=== PATIENT | female | born 1960 | race Caucasian/White ===

== ENCOUNTER 2017-10-29 07:23 | Emergency (ER) | payer MEDICAID ==
[~2017-10-29] VITALS: Ht 157.5 cm; Wt 101.6 kg
[~2017-10-29 07:23] MED LIST: ALBU0.0912 IH; AMMO12LO TP; ASPI-1093 PO; BENA5TAB13 PO; BENZ1TAB42 PO; BUDE180P IH; DIVA500E2 PO; HAL1 PO; LOTC TP; METF500T PO; SIMV20TA1 PO; SYN.025 PO; TRAZ-289 PO
[2017-10-29 07:28] VITALS: BP 120/70
--- NOTE | 2017-10-29 07:36 | NUR ---
PT TO RM 12 WITH STEADY GAIT. GAVE REPORT TO GERARDO SCHMIDT.
[2017-10-29] MEDS ORDERED: KETOROLAC 60 MG/2 ML VIAL IM ONE (07:45)
[2017-10-29] MEDS ORDERED: cefTRIAXone 1,000 MG in LIDOCAINE 1% ***ER ONLY *** 2.1 ML IM ONE (07:45)
[2017-10-29] MEDS ORDERED: cefTRIAXone 1,000 MG VIAL ONE (07:52)
[2017-10-29] MEDS ORDERED: LIDOCAINE MPF 1% - **ER/OR** 5 ML ONE (07:53)
--- NOTE | 2017-10-29 08:11 | NUR ---
CAROLINE CAME IN TO THE ER WITH PAIN TO THE RIGHT EAR. SHE FELT LIKE A BUG WENT INTO HER EAR AND IT IS MAKING NOISES. PAIN LEVEL IS ABOUT A 5. ONSET OF PAIN STARTED THIS MORNING. CAROLINE HAS NO KNOWN ALLERGIES. HER MEDICAL HISTORY IS DIABETES AND MENTAL HEALTH SCHIZOPHRENIA. HER BRICKLAYER SEWER DROPPED HER OFF FROM HER PENITENTIARY. CAROLINE APPEARS TO BE CALM AND COOPERATIVE.
[2017-10-29 08:41] VITALS: BP 120/70
--- NOTE | 2017-10-29 08:42 | NUR ---
Patient discharged with v/s stable. Written and verbal after care instructions given and explained. Patient alert, oriented and verbalized understanding of instructions. Ambulatory with steady gait. All questions addressed prior to discharge. ID band removed. Patient advised to follow up with PMD. Rx of CORTISPORIN AND KETOROLAC given. Patient educated on indication of medication including possible reaction and side effects. Opportunity to ask questions provided and answered.Patients vitals were stable and she was alert and oriented X4 upon discharge.
== END 2017-10-29 08:42 | disposition home or self-care (01) ==
LOC: MED 07:23
DX: H60.91 Unspecified otitis externa, right ear (principal); E11.9 Type 2 diabetes mellitus without complications; K21.9 Gastro-esophageal reflux disease without esophagitis; I10 Essential (primary) hypertension; Z79.899 Other long term (current) drug therapy
CPT/HCPCS: 96372; 99284; J0696; J1885; J2001

== ENCOUNTER 2022-01-25 18:48 | Inpatient (IN) | payer MEDICAID ==
[~2022-01-25] VITALS: Ht 162.6 cm; Wt 72.6 kg
[~2022-01-25 18:48] MED LIST changes: +BENZ-315 PO; -BENZ1TAB42 PO; -HAL1 PO; +HALO1TAB99 PO; +METF-346 PO; -METF500T PO; +SIMV-372 PO; -SIMV20TA1 PO; -TRAZ-289 PO; +TRAZ-471 PO
[2022-01-25 18:55] VITALS: BP 84/60
--- NOTE | 2022-01-25 19:16 | NUR ---
PT BIBA BLS ER BED 9
--- NOTE | 2022-01-25 19:16 | NUR ---
Patient to bed 09.
--- NOTE | 2022-01-25 19:20 | NUR ---
Report given to BRAYAN Gomez.
--- NOTE | 2022-01-25 19:30 | NUR ---
ASSUME CARE OF PT IN ED 9, REPORT GIVEN BY JUANITA RN, PT BIBA FOR [facility]AC[facility], PT C/O GENERAL WEAKNESS, COUGH X 4 DAYS. HX- COPD, DM, BIOLAR, SCHIZOPHRENIA.
[2022-01-25 20:56] LABS: BASOPHILS % (AUTO) 0.5 % (0.0-2.0); EOSINOPHILS # (AUTO) 0.1 K/uL (0-0.4); EOSINOPHILS % (AUTO) 1.5 % (0.0-4.0); HEMATOCRIT 36.6 % (36-48); HEMOGLOBIN 12.3 g/dL (12.0-16.0); LYMPHOCYTES % (AUTO) 31.9 % (20.5-51.1); MEAN CORPUSCULAR HEMOGLOBIN 33 pg (27-31); MEAN CORPUSCULAR HGB CONC 34 g/dL (33-37); MEAN CORPUSCULAR VOLUME 96.7 fL (80-94); MONOCYTES # (AUTO) 0.8 K/uL (0.8-1.0); MONOCYTES % (AUTO) 13.1 % (1.7-9.3); NEUTROPHILS # (AUTO) 3.3 K/uL (1.8-7.7); PLATELET COUNT (AUTO) 127 K/uL (140-450); RED BLOOD CELL COUNT(AUTO) 3.78 MIL/uL (4.20-5.40); RED CELL DISTRIBUTION WIDTH 15.1 % (11.6-13.7); WHITE BLOOD COUNT (AUTO) 6.3 K/uL (4.8-10.8)
--- NOTE | 2022-01-25 21:00 | NUR ---
PT TOOK OUT IV AND SOILED HERSELF. PT BED LINEN CHANGED AND DIAPER APPLIED, PLACED ON HOSPITAL MORTICIAN.
[2022-01-25 21:22] LABS: ALBUMIN 2.7 g/dL (3.4-5.0); ANION GAP 14.2 (8-16); CARBON DIOXIDE 23.7 mmol/L (21-32); CREATININE 2.1 mg/dL (0.6-1.3); POTASSIUM 4.9 mmol/L (3.5-5.1); TOTAL BILIRUBIN 0.2 mg/dL (0.0-1.0)
[2022-01-25] MEDS ORDERED: cefTRIAXone 1,000 MG VIAL ONE (22:00)
[2022-01-25] MEDS: NACL 0.9% 1,000 ML IV SCH ×2 (22:02→23:06)
[2022-01-25] MEDS ORDERED: CALCIUM GLUC 1 GM/50 mL NS BAG 50 ML IV ONE (22:15)
[2022-01-25] MEDS ORDERED: ALBUMIN HUMAN 25% 50 ML IV ONE (22:20)
[2022-01-26] MEDS ORDERED: MAGNESIUM OXIDE 400 MG TAB PO PRN (00:35)
[2022-01-26] MEDS ORDERED: ALBUTEROL SULFATE/IPRATROPIU 3 ML SOL IH PRN (00:35)
[2022-01-26] MEDS ORDERED: MORPHINE SULFATE 2 MG/ML SYR IVP PRN (00:35)
[2022-01-26] MEDS ORDERED: HYDROcodone/APAP 5/325 MG 1 TAB TAB PO PRN (00:35)
[2022-01-26] MEDS ORDERED: ONDANSETRON 4 MG/2 ML VIAL IM/IVP PRN (00:35)
[2022-01-26] MEDS ORDERED: DOCUSATE SODIUM 100 MG GELCAP PO PRN (00:35)
[2022-01-26] MEDS ORDERED: SODIUM PHOS / POTASSIUM PHOS 1 PKT PDR PO PRN (00:35)
[2022-01-26] MEDS ORDERED: POTASSIUM CHLORIDE 10 MEQ TABER PO PRN (00:35)
[2022-01-26] MEDS ORDERED: ACETAMINOPHEN 325 MG TAB PO PRN (00:35)
--- NOTE | 2022-01-26 00:39 | NUR ---
Assisted patient to restroom.
[2022-01-26 01:22] LABS: MAGNESIUM 2.3 mg/dL (1.8-2.4); PHOSPHORUS 3.6 mg/dL (2.5-4.9)
[2022-01-26] MEDS ORDERED: ALBUMIN HUMAN 25% 50 ML IV ONE (01:51)
--- NOTE | 2022-01-26 02:14 | NUR ---
Spoke with patient 's sister and update patient status.
--- NOTE | 2022-01-26 02:45 | NUR ---
PT RESTING IN BED, CONTINUE ON JACQUARD LOOM CARPET WEAVER, NO DISTRESS OBSERVED.
[2022-01-26] MEDS: NACL 0.9% 1,000 ML IV SCH ×2 (02:46→17:22)
--- NOTE | 2022-01-26 03:29 | NUR ---
PT PULLED OUT ANOTHER IV, PT AMBULATED TO RESTROOM. PT LINEN CHANGED APPLIED CLEAN DIAPER.
[2022-01-26 03:32] LABS: APPEARANCE,URINE CLOUDY (CLEAR); BILIRUBIN,URINE NEGATIVE (NEGATIVE); BLOOD, URINE TRACE-I (NEGATIVE); COLOR,URINE YELLOW (YELLOW); LEUKOCYTE ESTERASE ,URINE 3+ (NEGATIVE); NITRITE, URINE NEGATIVE (NEGATIVE); UGLUCOSE NEGATIVE (NEGATIVE)
--- NOTE | 2022-01-26 04:00 | NUR ---
PT ASLEEP RESTING IN BED, PLACED PT BACK ON OUTSIDE PARTS SALESMAN.
--- NOTE | 2022-01-26 06:45 | NUR ---
PT GOWN CHANGED AND NEW IV STARTED. PT RESTING IN BED ON EKG/ECG TECHNICIAN.
--- NOTE | 2022-01-26 07:30 | NUR ---
RECEIVED PT IN [facility] ALERT ORIENTED FOLLOWS COMMANDS. NSR ON MONITOR. IV INFUSING FLUIDS PER ORDER. PENDING TELE BED. NAD. SAFETY MAINTAINED
--- NOTE | 2022-01-26 07:30 | NUR ---
RECEIVED PATIENT FROM ER NURSE BY JARED. PT ADMITTED FOR GENERALIZED WEAKNESS, HODAN, AND DEHYDRATION. PT IS AOX2, ABLE TO MAKE NEEDS KNOWN. ON ROOM AIR AND NO DISTRESS NOTED. SKIN IS WARM,DRY, AND INTACT. IV SITE ON LAC 18G SALINE LOCKED. ABD IS SOFT, FLAT, NON-TENDER. BOWEL SOUNDS ACTIVE IN ALL QUADRANTS. DENIES PAIN AT THE MOMENT. PLAN OF CARE DISCUSSED. SAFETY PRECAUTIONS IN PLACE. CALL LIGHT WITHIN REACH. WILL CONTINUE TO MONITOR. Addendum: 01/26/22 at 1419 by Jose Miguel Baker RN RN WRONG TIMESTAMP. CORRECT TIME IS 0810
[2022-01-26] MEDS ORDERED: NACL 0.9% 500 ML IV SCH (07:43)
[2022-01-26 08:10] VITALS: BP 136/65
--- NOTE | 2022-01-26 08:10 | NUR ---
RECEIVED PATIENT FROM ER NURSE BY JARED. PT ADMITTED FOR GENERALIZED WEAKNESS, HODAN, AND DEHYDRATION. PT IS AOX2, ABLE TO MAKE NEEDS KNOWN. ON ROOM AIR AND NO DISTRESS NOTED. SKIN IS WARM,DRY, AND INTACT. IV SITE ON LAC 18G SALINE LOCKED. ABD IS SOFT, FLAT, NON-TENDER. BOWEL SOUNDS ACTIVE IN ALL QUADRANTS. DENIES PAIN AT THE MOMENT. PLAN OF CARE DISCUSSED. SAFETY PRECAUTIONS IN PLACE. CALL LIGHT WITHIN REACH. WILL CONTINUE TO MONITOR.
[2022-01-26] MEDS ORDERED: LEVOTHYROXINE 0.025 MG TAB PO SCH (09:00)
[2022-01-26] MEDS: HALOPERIDOL 1 MG TAB PO SCH ×2 (09:53→21:54)
[2022-01-26] MEDS: PANTOPRAZOLE 40 MG TABEC PO SCH (09:54)
[2022-01-26] MEDS: DIVALPROEX 500 MG TABEC PO SCH ×2 (09:54→21:54)
[2022-01-26] MEDS: ECOTRIN 81 MG TABEC PO SCH (09:54)
[2022-01-26] MEDS: metFORMIN 500 MG TAB PO SCH ×2 (09:55→21:53)
[2022-01-26] MEDS: SIMVASTATIN 20 MG TAB PO SCH (09:55)
[2022-01-26] MEDS: BENAZEPRIL 5 MG TAB PO SCH (09:55)
--- NOTE | 2022-01-26 10:00 | NUR ---
ALL SCHEDULED MEDS GIVEN. PT IS STABLE. NO DISTRESS NOTED. WILL CONTINUE TO MONITOR.
[2022-01-26 10:20] LABS: BASOPHILS % (AUTO) 0.4 % (0.0-2.0); EOSINOPHILS # (AUTO) 0.1 K/uL (0-0.4); HEMATOCRIT 36.7 % (36-48); HEMOGLOBIN 12.2 g/dL (12.0-16.0); LYMPHOCYTES # (AUTO) 1.7 K/uL (2.5-16.5); LYMPHOCYTES % (AUTO) 34.6 % (20.5-51.1); MEAN CORPUSCULAR HEMOGLOBIN 32 pg (27-31); MEAN CORPUSCULAR HGB CONC 33 g/dL (33-37); MEAN CORPUSCULAR VOLUME 97.1 fL (80-94); MONOCYTES # (AUTO) 0.6 K/uL (0.8-1.0); MONOCYTES % (AUTO) 11.3 % (1.7-9.3); NEUTROPHILS # (AUTO) 2.6 K/uL (1.8-7.7); NEUTROPHILS % (AUTO) 51.7 % (42.2-75.2); PLATELET COUNT (AUTO) 128 K/uL (140-450); RED BLOOD CELL COUNT(AUTO) 3.78 MIL/uL (4.20-5.40); RED CELL DISTRIBUTION WIDTH 14.9 % (11.6-13.7)
[2022-01-26 10:43] LABS: ANION GAP 10.8 (8-16); CARBON DIOXIDE 25.9 mmol/L (21-32); POTASSIUM 4.7 mmol/L (3.5-5.1)
[2022-01-26 12:00] VITALS: BP 142/71
--- NOTE | 2022-01-26 13:15 | NUR ---
CHECKED ON PATIENT. PT IS SLEEPING NOTED CHEST RISE AND FALL. NO DISTRESS NOTED. WILL CONTINUE TO MONITOR.
--- NOTE | 2022-01-26 14:25 | NUR ---
PATIENT HAS BEEN SCREENED AND CATEGORIZED MODERATE NUTRITION RISK. PATIENT WILL BE SEEN WITHIN 3-[address]ION. [address]
--- NOTE | 2022-01-26 15:30 | NUR ---
DC PLANNING SW ATTEMPTED TO MEET WITH PATIENT AT BEDSIDE TO COMPLETE ASSESSMENT HOWEVER, PATIENT STRUGGLED TO PARTICIPATE IN ASSESSMENT AND REQUESTED FOR SW TO CALL [facility] ADMIN. SW SPOKE WITH [facility] SOFT WORK CIGAR MACHINE OPERATOR LAURA, TO GATHER COLLATERAL INFORMATION. PATIENT HAS BEEN RESIDENT WITH [facility] SINCE 11/18/01. LAURA IDENTIFIES PATIENTS SISTER GARRY EMERGENCY CONTACT. LAURA REPORTS PATIENT IS VERBAL AND HAS ABILITY TO MAKE NEEDS KNOWN. PATIENT HAS A SISTER WHO IS ACTIVE IN HER CARE AND VISITS WITH HER. LAURA REPORTS THAT SISTER HAS BEEN NOTIFIED THAT PATIENT HAS BEEN ADMITTED TO [facility]. PATIENT IS REPORTED TO HAVE MENTAL HEALTH HX OF SCHIZOPHRENIA. PATIENT IS REPORTED TO BE MEDICATION COMPLIANT, LAURA DENIES BARRIERS IN ACCESS TO MEDICATIONS.DC PLAN IS FOR PATIENT TO RETURN TO [facility] WHEN MEDICALLY STABLE.
[2022-01-26 16:00] VITALS: BP 115/52
--- NOTE | 2022-01-26 16:35 | NUR ---
CHECKED ON PATIENT. PT IS STABLE. NO DISTRESS NOTED. WILL CONTINUE TO MONITOR.
--- NOTE | 2022-01-26 18:00 | NUR ---
OBTAINED UDS AND SENT TO LABS
[2022-01-26 19:13] LABS: BARBITURATE, URINE NEGATIVE ng/ml (NEG <=200)
[2022-01-26 19:14] LABS: BENZODIAZEPINE, URINE NEGATIVE ng/mL (NEG <=200); CANNABINOID, URINE NEGATIVE ng/mL (NEG <=50); COCAINE, URINE NEGATIVE ng/mL (NEG <=300); OPIATE, URINE NEGATIVE ng/mL (NEG <=2000); PHENCYCLIDINE SCREEN,URINE NEGATIVE ng/mL (NEG <=25)
[2022-01-26 20:00] VITALS: BP 133/70
[2022-01-27] VITALS: BP 126/68
[2022-01-27 04:00] VITALS: BP 130/70
[2022-01-27 06:39] LABS: BASOPHILS % (AUTO) 0.3 % (0.0-2.0); EOSINOPHILS # (AUTO) 0.2 K/uL (0-0.4); EOSINOPHILS % (AUTO) 3.1 % (0.0-4.0); HEMATOCRIT 36.2 % (36-48); HEMOGLOBIN 12.3 g/dL (12.0-16.0); LYMPHOCYTES # (AUTO) 2.9 K/uL (2.5-16.5); LYMPHOCYTES % (AUTO) 52.5 % (20.5-51.1); MEAN CORPUSCULAR HEMOGLOBIN 33 pg (27-31); MEAN CORPUSCULAR HGB CONC 34 g/dL (33-37); MEAN CORPUSCULAR VOLUME 96.8 fL (80-94); MONOCYTES # (AUTO) 0.6 K/uL (0.8-1.0); MONOCYTES % (AUTO) 11.7 % (1.7-9.3); NEUTROPHILS # (AUTO) 1.8 K/uL (1.8-7.7); NEUTROPHILS % (AUTO) 32.4 % (42.2-75.2); PLATELET COUNT (AUTO) 133 K/uL (140-450); RED BLOOD CELL COUNT(AUTO) 3.74 MIL/uL (4.20-5.40); RED CELL DISTRIBUTION WIDTH 14.7 % (11.6-13.7); WHITE BLOOD COUNT (AUTO) 5.5 K/uL (4.8-10.8)
[2022-01-27 06:43] LABS: ANION GAP 9.7 (8-16); CARBON DIOXIDE 26.5 mmol/L (21-32); CREATININE 0.7 mg/dL (0.6-1.3); POTASSIUM 5.2 mmol/L (3.5-5.1)
[2022-01-27 08:00] VITALS: BP 121/67
[2022-01-27] MEDS: SIMVASTATIN 20 MG TAB PO SCH (09:00)
[2022-01-27] MEDS: HALOPERIDOL 1 MG TAB PO SCH ×2 (09:00→21:50)
[2022-01-27] MEDS: ECOTRIN 81 MG TABEC PO SCH (09:00)
[2022-01-27] MEDS: PANTOPRAZOLE 40 MG TABEC PO SCH (09:00)
[2022-01-27] MEDS: DIVALPROEX 500 MG TABEC PO SCH ×2 (09:00→21:49)
[2022-01-27] MEDS: BENAZEPRIL 5 MG TAB PO SCH (09:00)
[2022-01-27] MEDS: metFORMIN 500 MG TAB PO SCH ×2 (09:00→21:50)
--- NOTE | 2022-01-27 09:15 | NUR ---
PT RECEIVED FROM [facility] RT BREATHING ROOM AIR, PT IS NOT IN ANY RESPIRATORY DISTRESS, WILL CONTINUE TO MONITOR.
[2022-01-27] MEDS: NACL 0.9% 1,000 ML IV SCH (09:55)
[2022-01-27] MEDS ORDERED: SODIUM ZIRCONIUM CYCLOSILICATE 10 GM POWD.PACK PO SCH (12:30)
[2022-01-27] MEDS ORDERED: AMOX-999 PO (14:41)
--- NOTE | 2022-01-27 19:20 | NUR ---
RECEIVED ENDORSEMENT FROM AD SCHMIDT (REGISTRY), PATIENT WAS STABLE DURING SHIFT REPORT. PATIENT IN BED ASLEEP. CHEST RISING AND FALLING WITHOUT INCIDENT. NO NOTED S/S OF GENERALIZED WEAKNESS. NO NOTED S/S OF PAIN/DISCOMFORT. BED AT THE LOWEST LEVEL SIDE RAILS UP X 2 FOR SAFETY AND ADJUSTMENT. [email or web address]
[2022-01-27 20:00] VITALS: BP 129/66
--- NOTE | 2022-01-27 20:00 | NUR ---
REVIEWED PLAN OF CARE WITH KERON MORALES LVN. [email or web address]
--- NOTE | 2022-01-27 21:00 | NUR ---
PATIENT WAS CHANGED FROM URINE AND BOWEL BEDDING ANS GOWN. NURSING ASSISTED X 2. PATIENT STATES SHE CAN GO THE THE RESTROOM BUT JUST DID IT IN THE BED. NURSING TAUGHT HER HOW TO USE THE CALL LIGHT AND USE FOR ALL NEEDS. PATIENT UNDERSTOOD AND AGREED. [email or web address]
--- NOTE | 2022-01-27 23:53 | NUR ---
PATIENT WAS CONFUSED THINKING IT IS DAYTIME AND READY FOR BREAKFAST. NURSING REORIENTED HER TO THE EVENING TIME GAVE HER AN SNACK. PATIENT COMPLAINED OF PAIN TO ARM AT IV SITE. IV INFILTRATED WILL START NEW IV. PATIENT WAS GIVEN PAIN PRN. BP NOTED 152/68 HR 88. [email or web address]
--- NOTE | 2022-01-28 01:00 | NUR ---
STARTED NEW IV LINE ON RIGHT FOREARM X TWO ATTEMPTS. PATIENT TOLERATED IT WELL. PATIENT REMAINS IN HIS BED ASLEEP. NO S/S OF PAIN/DISCOMFORT. CHEST NOTED RISING AND FALLING WITHOUT DISTRESS. NURSING WILL FREQUENT THIS ROOM FOR ANTICIPATED ASSISTANCE BECAUSE OF EPISODES OF CONFUSION. [email or web address]
[2022-01-28] MEDS: LEVOTHYROXINE 0.025 MG TAB PO SCH ×2 (02:21→06:41)
[2022-01-28] MEDS: NACL 0.9% 1,000 ML IV SCH (02:22)
--- NOTE | 2022-01-28 03:55 | NUR ---
PATIENT IN BED ASLEEP WITHOUT INCIDENT. [email or web address]
[2022-01-28 04:00] VITALS: BP 116/62
--- NOTE | 2022-01-28 05:29 | NUR ---
PATIENT AWAKE WATCHING TV. PATIENT ABLE TO WALK, GO TO THE BATHROOM, AND EAT. PATIENT CLAIMS TO BE MUCH BETTER ANS WANTS TO GO HOME NOW. NURSING INFORMED PATIENT OF DISCHARGE ORDERS FOR TODAY. AM SHIFT WILL BE INFORMED TO CALL HER SISTER TO CAME GET PATIENT AND RETURN HER TO HER ASSISTED LIVING FACILITY. [email or web address]
[2022-01-28 06:22] LABS: BASOPHILS % (AUTO) 0.4 % (0.0-2.0); EOSINOPHILS # (AUTO) 0.3 K/uL (0-0.4); EOSINOPHILS % (AUTO) 4.3 % (0.0-4.0); HEMATOCRIT 35.3 % (36-48); LYMPHOCYTES # (AUTO) 3.1 K/uL (2.5-16.5); LYMPHOCYTES % (AUTO) 47.7 % (20.5-51.1); MEAN CORPUSCULAR HEMOGLOBIN 33 pg (27-31); MEAN CORPUSCULAR HGB CONC 34 g/dL (33-37); MEAN CORPUSCULAR VOLUME 96.5 fL (80-94); MONOCYTES # (AUTO) 0.7 K/uL (0.8-1.0); NEUTROPHILS # (AUTO) 2.4 K/uL (1.8-7.7); NEUTROPHILS % (AUTO) 36.6 % (42.2-75.2); PLATELET COUNT (AUTO) 119 K/uL (140-450); RED BLOOD CELL COUNT(AUTO) 3.66 MIL/uL (4.20-5.40); RED CELL DISTRIBUTION WIDTH 14.8 % (11.6-13.7); WHITE BLOOD COUNT (AUTO) 6.4 K/uL (4.8-10.8)
--- NOTE | 2022-01-28 07:35 | NUR ---
ENDORSED PATIENT TO AD RN FOR CONTINUITY OF CARE. PATIENT WAS STABLE DURING CHANGE OF SHIFT. INFORMED PATIENT HAS DISCHARGE ORDERS. [email or web address]
[2022-01-28 08:00] VITALS: BP 135/81
[2022-01-28] MEDS: BENAZEPRIL 5 MG TAB PO SCH (09:00)
[2022-01-28] MEDS: PANTOPRAZOLE 40 MG TABEC PO SCH (09:20)
[2022-01-28] MEDS: DIVALPROEX 500 MG TABEC PO SCH (09:20)
[2022-01-28] MEDS: HALOPERIDOL 1 MG TAB PO SCH (09:20)
[2022-01-28] MEDS: ECOTRIN 81 MG TABEC PO SCH (09:21)
[2022-01-28] MEDS: metFORMIN 500 MG TAB PO SCH (09:21)
[2022-01-28] MEDS: SIMVASTATIN 20 MG TAB PO SCH (09:21)
[2022-01-28] MEDS ORDERED: LEVO-481 PO (13:35)
== END 2022-01-28 13:05 | disposition home or self-care (01) | DRG 463 ==
LOC: MED 18:48 → MTU 01-26 00:35 → MMU 01-26 05:13
PROVIDERS: ADMIT Hospitalist; ATTEND Hospitalist
DX: N39.0 Urinary tract infection, site not specified (principal); N17.0 Acute kidney failure with tubular necrosis; G93.41 Metabolic encephalopathy; E43 Unspecified severe protein-calorie malnutrition; D69.6 Thrombocytopenia, unspecified; E11.22 Type 2 diabetes mellitus with diabetic chronic kidney disease; E86.0 Dehydration; F20.9 Schizophrenia, unspecified; E03.9 Hypothyroidism, unspecified; E78.5 Hyperlipidemia, unspecified; Z20.822 Contact with and (suspected) exposure to COVID-19; I12.9 Hypertensive chronic kidney disease with stage 1 through stage 4 chronic kidney disease, or unspecified chronic kidney disease; N18.9 Chronic kidney disease, unspecified; Z79.899 Other long term (current) drug therapy
CPT/HCPCS: 36415; 36600; 71045; 76770; 80048; 80053; 80305; 81001; 82140; 82803; 83036; 83605; 83735; 83880; 84100; 84443; 84484; 85025; 87040; 87081; 87086; 93005; 97116; 99285; J0610; J0696; J7060; P9046; Q0092

== ENCOUNTER 2023-03-21 18:27 | Inpatient (IN) | payer MEDICAID ==
[~2023-03-21] VITALS: Ht 167.6 cm; Wt 86.2 kg
[~2023-03-21 18:27] MED LIST changes: +LEVO-481 PO
[2023-03-21] MEDS ORDERED: cefTRIAXone 1,000 MG in DEXT 5% MINI-BAG PLUS 50 ML IV ONE (19:10)
[2023-03-21] MEDS ORDERED: NACL 0.9% 1,000 ML IV SCH (19:10)
[2023-03-21 19:13] VITALS: BP 84/52; PULSE 87; RESP 17; TEMP 97.6; O2SAT 98
[2023-03-21 19:34] LABS: BASOPHILS % (AUTO) 0.4 % (0.0-2.0); EOSINOPHILS % (AUTO) 0.4 % (0.0-4.0); HEMATOCRIT 36.9 % (36-48); HEMOGLOBIN 12.8 g/dL (12.0-16.0); LYMPHOCYTES # (AUTO) 0.8 K/uL (2.5-16.5); LYMPHOCYTES % (AUTO) 15.3 % (20.5-51.1); MEAN CORPUSCULAR HEMOGLOBIN 32 pg (27-31); MEAN CORPUSCULAR HGB CONC 35 g/dL (33-37); MEAN CORPUSCULAR VOLUME 93.5 fL (80-94); MONOCYTES # (AUTO) 0.7 K/uL (0.8-1.0); MONOCYTES % (AUTO) 13.1 % (1.7-9.3); NEUTROPHILS # (AUTO) 3.7 K/uL (1.8-7.7); NEUTROPHILS % (AUTO) 70.8 % (42.2-75.2); PLATELET COUNT (AUTO) 124 K/uL (140-450); RED BLOOD CELL COUNT(AUTO) 3.95 MIL/uL (4.20-5.40); RED CELL DISTRIBUTION WIDTH 15.6 % (11.6-13.7); WHITE BLOOD COUNT (AUTO) 5.2 K/uL (4.8-10.8)
[2023-03-21] MEDS ORDERED: cefTRIAXone 1,000 MG VIAL ONE (19:41)
[2023-03-21 19:48] LABS: INR 1.11 (0.8-1.2); PARTIAL THROMBOPLASTIN TIME 34.8 secs (22-35.6); PROTHROMBIN TIME 11.5 secs (10.8-13.4)
[2023-03-21 19:50] LABS: ALBUMIN 2.8 g/dL (3.4-5.0); ANION GAP 10.6 (8-16); CALCIUM 7.7 mg/dL (8.5-10.1); CARBON DIOXIDE 27.4 mmol/L (21-32); TOTAL BILIRUBIN 0.2 mg/dL (0.0-1.0); TOTAL PROTEIN, SERUM 6.2 g/dL (6.4-8.2)
[2023-03-21 19:53] LABS: LACTIC ACID 1.1 mmol/L (0.4-2.0)
[2023-03-21 20:45] LABS: BILIRUBIN,URINE NEGATIVE (NEGATIVE); BLOOD, URINE TRACE-L (NEGATIVE); COLOR,URINE YELLOW (YELLOW); LEUKOCYTE ESTERASE ,URINE 1+ (NEGATIVE); NITRITE, URINE POSITIVE (NEGATIVE); PH,URINE 6.5 (5.0-9.0); PROTEIN,URINE NEGATIVE (NEGATIVE); UGLUCOSE NEGATIVE (NEGATIVE); UROBILINOGEN,URINE 0.2 EU/dL (0.2 - 1)
[2023-03-21 20:50] LABS: APPEARANCE,URINE SLIGHTLY CLOUDY (CLEAR)
[2023-03-21 21:03] LABS: BACTERIA,URINE 10-30 (MOD) /HPF (None Seen)
[2023-03-21 21:04] LABS: SQUAMOUS EPITHELIAL CELL,UR 0-3 (FEW) /LPF (0-3 (FEW))
[2023-03-21] MEDS ORDERED: POTASSIUM CHLORIDE 10 MEQ TABER PO PRN (22:30)
[2023-03-21] MEDS ORDERED: ACETAMINOPHEN 325 MG TAB PO PRN (22:30)
[2023-03-21] MEDS: NACL 0.9% 1,000 ML IV SCH (22:30)
[2023-03-21] MEDS ORDERED: HYDROcodone/APAP 7.5/325 MG 1 TAB PO PRN (22:30)
[2023-03-21] MEDS ORDERED: guaiFENesin DM 200/20 MG-10 ML 10 ML UDC PO PRN (22:30)
[2023-03-21] MEDS ORDERED: ZOLPIDEM 5 MG TAB PO PRN (22:30)
[2023-03-21] MEDS ORDERED: DOCUSATE SODIUM 100 MG GELCAP PO PRN (22:30)
[2023-03-21] MEDS ORDERED: ONDANSETRON 4 MG/2 ML VIAL IM/IVP PRN (22:30)
[2023-03-22 00:10] VITALS: O2SAT 95
[2023-03-22 03:48] VITALS: O2SAT 95
[2023-03-22 06:15] VITALS: O2SAT 95
[2023-03-22 06:34] LABS: BASOPHILS % (AUTO) 0.6 % (0.0-2.0); EOSINOPHILS % (AUTO) 0.4 % (0.0-4.0); HEMATOCRIT 37.4 % (36-48); HEMOGLOBIN 12.7 g/dL (12.0-16.0); LYMPHOCYTES # (AUTO) 1.1 K/uL (2.5-16.5); LYMPHOCYTES % (AUTO) 28.1 % (20.5-51.1); MEAN CORPUSCULAR HEMOGLOBIN 32 pg (27-31); MEAN CORPUSCULAR HGB CONC 34 g/dL (33-37); MEAN CORPUSCULAR VOLUME 94.3 fL (80-94); MONOCYTES # (AUTO) 0.8 K/uL (0.8-1.0); MONOCYTES % (AUTO) 18.6 % (1.7-9.3); NEUTROPHILS # (AUTO) 2.1 K/uL (1.8-7.7); NEUTROPHILS % (AUTO) 52.3 % (42.2-75.2); PLATELET COUNT (AUTO) 124 K/uL (140-450); RED BLOOD CELL COUNT(AUTO) 3.97 MIL/uL (4.20-5.40); RED CELL DISTRIBUTION WIDTH 15.3 % (11.6-13.7); WHITE BLOOD COUNT (AUTO) 4.1 K/uL (4.8-10.8)
[2023-03-22 06:42] LABS: ALBUMIN 2.7 g/dL (3.4-5.0); ANION GAP 12.9 (8-16); CALCIUM 8.1 mg/dL (8.5-10.1); CARBON DIOXIDE 25.1 mmol/L (21-32); CREATININE 0.8 mg/dL (0.6-1.3); TOTAL BILIRUBIN 0.1 mg/dL (0.0-1.0); TOTAL PROTEIN, SERUM 6.3 g/dL (6.4-8.2)
[2023-03-22 07:46] VITALS: O2SAT 94
[2023-03-22] MEDS ORDERED: cefTRIAXone 1,000 MG VIAL ONE (09:28)
[2023-03-22] MEDS: PANTOPRAZOLE 40 MG TABEC PO SCH (09:34)
[2023-03-22] MEDS: guaiFENesin/CODEINE 100/10MG 5 ML UDC PO PRN ×2 (14:57→23:46)
[2023-03-22] MEDS: NACL 0.9% 1,000 ML IV SCH (20:00)
[2023-03-22 21:05] VITALS: PULSE 87; RESP 17; RESP 18; O2SAT 93; O2SAT 95
[2023-03-23] VITALS: BP 144/74; PULSE 79; PULSE 88; RESP 17; TEMP 97.3; O2SAT 95
[2023-03-23 04:00] VITALS: BP 146/18; PULSE 86; PULSE 94; RESP 18; TEMP 97.4; O2SAT 94
[2023-03-23 05:52] LABS: EOSINOPHILS # (AUTO) 0.1 K/uL (0-0.4); EOSINOPHILS % (AUTO) 1.1 % (0.0-4.0); HEMATOCRIT 37.8 % (36-48); HEMOGLOBIN 12.8 g/dL (12.0-16.0); LYMPHOCYTES % (AUTO) 38.1 % (20.5-51.1); MEAN CORPUSCULAR HEMOGLOBIN 32 pg (27-31); MEAN CORPUSCULAR HGB CONC 34 g/dL (33-37); MEAN CORPUSCULAR VOLUME 93.9 fL (80-94); MONOCYTES # (AUTO) 1.1 K/uL (0.8-1.0); MONOCYTES % (AUTO) 20.4 % (1.7-9.3); NEUTROPHILS # (AUTO) 2.2 K/uL (1.8-7.7); NEUTROPHILS % (AUTO) 40.4 % (42.2-75.2); PLATELET COUNT (AUTO) 118 K/uL (140-450); RED BLOOD CELL COUNT(AUTO) 4.02 MIL/uL (4.20-5.40); RED CELL DISTRIBUTION WIDTH 15.7 % (11.6-13.7); WHITE BLOOD COUNT (AUTO) 5.4 K/uL (4.8-10.8)
[2023-03-23] MEDS: NACL 0.9% 1,000 ML IV SCH (07:50)
[2023-03-23 08:00] VITALS: BP 117/73; PULSE 80; PULSE 83; PULSE 87; RESP 17; TEMP 98; O2SAT 100; O2SAT 95
[2023-03-23] MEDS: PANTOPRAZOLE 40 MG TABEC PO SCH (09:00)
[2023-03-23] MEDS ORDERED: CEPH-588 PO (09:27)
[2023-03-23 09:44] LABS: ALBUMIN 2.6 g/dL (3.4-5.0); ANION GAP 10.3 (8-16); CALCIUM 8.3 mg/dL (8.5-10.1); CARBON DIOXIDE 26.9 mmol/L (21-32); CREATININE 0.8 mg/dL (0.6-1.3); POTASSIUM 4.2 mmol/L (3.5-5.1); TOTAL PROTEIN, SERUM 6.1 g/dL (6.4-8.2)
[2023-03-23 09:54] LABS: TOTAL BILIRUBIN 0.2 mg/dL (0.0-1.0)
[2023-03-23 12:22] VITALS: BP 117/73; PULSE 87; RESP 17; TEMP 98
== END 2023-03-23 14:20 | disposition home or self-care (01) | DRG 720 ==
LOC: MED 18:27 → MMU 22:26 → MTU 03-22 20:46
PROVIDERS: ADMIT Student in an Organized Health Care Education/Training Program; ATTEND Student in an Organized Health Care Education/Training Program
DX: A41.9 Sepsis, unspecified organism (principal); G93.41 Metabolic encephalopathy; E43 Unspecified severe protein-calorie malnutrition; N39.0 Urinary tract infection, site not specified; E11.9 Type 2 diabetes mellitus without complications; Z20.822 Contact with and (suspected) exposure to COVID-19; Z79.899 Other long term (current) drug therapy; Z68.30 Body mass index [BMI] 30.0-30.9, adult
CPT/HCPCS: 36415; 70450; 71045; 80053; 81001; 83605; 83880; 84484; 85025; 85610; 85730; 87040; 87081; 87086; 93005; 96365; 99285; J0696; J7060; Q0092